=== PATIENT | female | born 1990 | race African-American/Black ===

== ENCOUNTER 2020-08-14 10:23 | Inpatient (IN) | payer OTHER ==
[2020-08-14 12:44] VITALS: BMI 30.9
[2020-08-14] MEDS ORDERED: chlordiazePOXIDE HCL 10 MG CAPSULE PO PRN (14:00)
[2020-08-14] MEDS ORDERED: MAGNESIUM CITRATE 300 ML BOTTLE PO PRN (14:02)
[2020-08-14] MEDS ORDERED: ACETAMINOPHEN 325 MG TABLET (FP) PO PRN (14:02)
[2020-08-14] MEDS ORDERED: MAG HYDROX/AL HYDROX/SIMETH 30 ML UNIT-DOSE CUP PO PRN (14:02)
[2020-08-14] MEDS ORDERED: METHOCARBAMOL 500 MG TABLET PO PRN (14:02)
[2020-08-14] MEDS ORDERED: MAGNESIUM HYDROX 2400MG/30ML ORAL SUSPENSION 30 ML CUP PO PRN (14:02)
[2020-08-14] MEDS ORDERED: IBUPROFEN 400 MG TABLET (FP) PO PRN (14:02)
[2020-08-14] MEDS ORDERED: MENTHOL/PHENOL 1 EACH UD MM PRN (14:02)
[2020-08-14] MEDS ORDERED: ALBUTEROL SO4 HFA INHALER IH PRN (14:10)
[2020-08-14] MEDS: CYANOCOBALAMIN 1,000 MCG TABLET (FP) PO SCH (15:21)
[2020-08-14 16:05] LABS: HEMATOCRIT 36.3 % (32.4-45.2); HEMOGLOBIN 11.9 GM/dL (10.7-15.3); MCH 28.4 pg (25.7-33.7); MCHC 32.6 g/dl (32.0-36.0); MEAN CELL VOLUME 87.1 fl (80-96); MEAN PLT VOLUME 8.9 fl (7.5-11.1); PLATELET COUNT 343 K/MM3 (134-434); RBC 4.17 M/mm3 (3.60-5.2); RDW 15.6 % (11.6-15.6); WHITE BLOOD COUNT 3.6 K/mm3 (4.0-10.0)
[2020-08-14 16:14] LABS: POTASSIUM 3.8 mmol/L (3.5-5.1)
[2020-08-14 16:28] LABS: ALBUMIN 3.8 g/dl (3.4-5.0); BLOOD UREA NITROGEN 4.8 mg/dL (7-18); CALCIUM 8.7 mg/dL (8.5-10.1)
[2020-08-14 16:31] LABS: CREATININE 0.7 mg/dL (0.55-1.3)
[2020-08-14 16:33] LABS: BILIRUBIN,TOTAL 1.6 mg/dL (0.2-1); TOT PROT 7.9 g/dl (6.4-8.2)
[2020-08-14] MEDS: chlordiazePOXIDE HCL 25 MG CAPSULE PO SCH ×2 (17:37→22:37)
[2020-08-14] MEDS: ONDANSETRON *ODT* 4 MG TABLET SL PRN (17:38)
[2020-08-14] MEDS: hydrOXYzine PAMOATE 25 MG CAPSULE (FP) PO SCH ×2 (17:38→22:37)
[2020-08-14] MEDS: THIAMINE HCL 100 MG TABLET (FP) PO SCH (22:36)
[2020-08-14] MEDS: MELATONIN 5 MG TABLETS PO SCH (22:38)
[2020-08-14] MEDS: ACETAMINOPHEN 325 MG TABLET (FP) PO PRN (22:38)
[2020-08-15] MEDS: hydrOXYzine PAMOATE 25 MG CAPSULE (FP) PO SCH ×3 (06:18→13:35)
[2020-08-15] MEDS: chlordiazePOXIDE HCL 25 MG CAPSULE PO SCH ×2 (06:18→10:13)
[2020-08-15] MEDS: ACETAMINOPHEN 325 MG TABLET (FP) PO PRN (06:19)
[2020-08-15] MEDS: FERROUS SO4 325 MG TABLET (FP) PO SCH (07:30)
[2020-08-15] MEDS: PANTOPRAZOLE 20 MG TABLET PO SCH (10:09)
[2020-08-15] MEDS: CYANOCOBALAMIN 1,000 MCG TABLET (FP) PO SCH (10:09)
[2020-08-15] MEDS: CALCIUM 250MG/VIT-D 125 UNITS 1 COMBO TABLET PO SCH (10:09)
[2020-08-15] MEDS: PRENATAL VITAMINS W/ FOLIC ACID TABLET (FP) PO SCH (10:10)
[2020-08-15] MEDS: ONDANSETRON *ODT* 4 MG TABLET SL PRN (10:12)
[2020-08-15] MEDS: BISMUTH SUBSALICYLATE 524 MG/30 ML UD PO PRN (13:36)
[2020-08-15] MEDS ORDERED: hydrOXYzine PAMOATE 25 MG CAPSULE (FP) PO PRN (13:37)
[2020-08-15] MEDS: chlordiazePOXIDE HCL 10 MG CAPSULE PO SCH ×2 (17:56→22:10)
[2020-08-15] MEDS: THIAMINE HCL 100 MG TABLET (FP) PO SCH (22:10)
[2020-08-15] MEDS: MELATONIN 5 MG TABLETS PO SCH (22:10)
[2020-08-16] MEDS: chlordiazePOXIDE HCL 10 MG CAPSULE PO SCH ×3 (05:49→17:22)
[2020-08-16] MEDS: FERROUS SO4 325 MG TABLET (FP) PO SCH (07:09)
[2020-08-16] MEDS: PRENATAL VITAMINS W/ FOLIC ACID TABLET (FP) PO SCH (10:12)
[2020-08-16] MEDS: CALCIUM 250MG/VIT-D 125 UNITS 1 COMBO TABLET PO SCH (10:12)
[2020-08-16] MEDS: PANTOPRAZOLE 20 MG TABLET PO SCH (10:12)
[2020-08-16] MEDS: CYANOCOBALAMIN 1,000 MCG TABLET (FP) PO SCH (10:13)
[2020-08-16] MEDS: BISMUTH SUBSALICYLATE 524 MG/30 ML UD PO PRN (10:14)
[2020-08-16] MEDS: IBUPROFEN 400 MG TABLET (FP) PO PRN ×2 (12:05→22:05)
[2020-08-16] MEDS: TRIMETHOBENZAMIDE HCL 300 MG CAPSULE PO PRN (12:35)
[2020-08-16] MEDS: MELATONIN 5 MG TABLETS PO SCH (22:04)
[2020-08-16] MEDS: THIAMINE HCL 100 MG TABLET (FP) PO SCH (22:05)
[2020-08-17] MEDS: IBUPROFEN 400 MG TABLET (FP) PO PRN ×2 (05:59→17:18)
[2020-08-17] MEDS: chlordiazePOXIDE HCL 10 MG CAPSULE PO SCH ×2 (05:59→17:17)
[2020-08-17] MEDS: FERROUS SO4 325 MG TABLET (FP) PO SCH (07:30)
[2020-08-17] MEDS: PRENATAL VITAMINS W/ FOLIC ACID TABLET (FP) PO SCH (09:08)
[2020-08-17] MEDS: CYANOCOBALAMIN 1,000 MCG TABLET (FP) PO SCH (09:09)
[2020-08-17] MEDS: CALCIUM 250MG/VIT-D 125 UNITS 1 COMBO TABLET PO SCH (09:09)
[2020-08-17] MEDS: PANTOPRAZOLE 20 MG TABLET PO SCH (09:09)
[2020-08-17] MEDS: TRIMETHOBENZAMIDE HCL 300 MG CAPSULE PO PRN (09:09)
[2020-08-17] MEDS ORDERED: TRIMETHOBENZAMIDE HCL 200MG/2ML INJ IM ONE (11:48)
[2020-08-17] MEDS: MELATONIN 5 MG TABLETS PO SCH (22:19)
[2020-08-17] MEDS: THIAMINE HCL 100 MG TABLET (FP) PO SCH (22:19)
[2020-08-18] MEDS ORDERED: chlordiazePOXIDE HCL 10 MG CAPSULE PO ONE (05:00)
[2020-08-18 06:27] VITALS: BP 104/70; PULSE 72; TEMP 97.6
== END 2020-08-18 08:51 | disposition home or self-care (01) | DRG 775 ==
LOC: YASAS 10:23 → Y3N 13:33
PROVIDERS: ADMIT Allergy & Immunology; ATTEND Allergy & Immunology
PROC: HZ2ZZZZ Detoxification Services for Substance Abuse Treatment (ICD-10-PCS; principal; 2020-08-14)
DX: F10.230 Alcohol dependence with withdrawal, uncomplicated (principal); J45.909 Unspecified asthma, uncomplicated; K45.8 Other specified abdominal hernia without obstruction or gangrene; R74.01 Elevation of levels of liver transaminase levels; R79.89 Other specified abnormal findings of blood chemistry; R11.2 Nausea with vomiting, unspecified; Z98.84 Bariatric surgery status; Z87.39 Personal history of other diseases of the musculoskeletal system and connective tissue
CPT/HCPCS: 36415; 80053; 85027; 86780; C9803; Q0162; U0003